=== PATIENT | female | born 2000 | race Caucasian/White ===

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

== ENCOUNTER 2020-03-13 08:09 | Emergency (ER) | payer OTHER ==
[~2020-03-13] VITALS: Ht 160 cm; Wt 87.1 kg
[2020-03-13 08:18] VITALS: Ht 160 cm; Wt 87.1 kg
[2020-03-13 09:06] VITALS: BP 134/94
== END 2020-03-13 09:06 | disposition home or self-care (01) ==
LOC: ED 08:09
DX: H60.502 Unspecified acute noninfective otitis externa, left ear (principal); H70.002 Acute mastoiditis without complications, left ear